=== PATIENT | female | born 1970 | race African-American/Black ===

== ENCOUNTER 2020-03-03 14:09 | Emergency (ER) | payer OTHER ==
[~2020-03-03] VITALS: Ht 165.1 cm; Wt 100.0 kg
[2020-03-03 14:32] VITALS: BP 160/91
[2020-03-03] MEDS ORDERED: ORPHENADRINE CITRATE 60 MG/2 ML VIAL. IM ONE (16:15)
[2020-03-03] MEDS ORDERED: KETOROLAC 60 MG/2 ML VIAL. IM ONE (16:15)
[2020-03-03] MEDS ORDERED: NAPR-514 PO (16:57)
[2020-03-03] MEDS ORDERED: CYCL10TA2 PO (16:57)
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
== END 2020-03-03 17:50 | disposition home or self-care (01) ==
LOC: ER 14:09
DX: S16.1XXA Strain of muscle, fascia and tendon at neck level, initial encounter (principal); M54.5 Low back pain; M54.6 Pain in thoracic spine; J45.909 Unspecified asthma, uncomplicated; Z91.013 Allergy to seafood; V49.49XA Driver injured in collision with other motor vehicles in traffic accident, initial encounter; Y93.89 Activity, other specified; Y92.488 Other paved roadways as the place of occurrence of the external cause; Y99.8 Other external cause status
CPT/HCPCS: 96372; 99284; J1885; J2360

== ENCOUNTER → 2020-06-20 | Outpatient (CLI) | payer OTHER ==
[~2020-06-20] MED LIST: CYCL10TA2 PO; NAPR-514 PO
--- NOTE | 2020-06-20 13:37 | RAD ---
EXAM: Pelvic sonogram. HISTORY: Pain. Prior endometrial ablation. TECHNIQUE: Transabdominal and transvaginal sonographic imaging of the pelvis was performed. COMPARISON: None. FINDINGS: The exam is limited due to body habitus. The uterus measures 11.8 x 7.1 x 6.6 cm. The endometrial stripe measures 3.8 cm in thickness. The ovaries are normal in size and demonstrate normal blood flow. IMPRESSION: 1. Severely thickened endometrial stripe measuring 3.8 cm. The patient reports no menstrual cycle status post reported endometrial ablation. Tissue sampling may be indicated for definitive diagnosis. 2. Unremarkable ovaries. Electronically signed by: Ila Castaneda MD (06/20/2020 1:34 PM) [id number]
== END ==
LOC: US 10:22
PROVIDERS: ATTEND Nurse Practitioner Family
DX: R10.32 Left lower quadrant pain (principal)
CPT/HCPCS: 76830; 76856

== ENCOUNTER 2020-12-20 21:28 | Emergency (ER) | payer OTHER ==
[~2020-12-20] VITALS: Ht 165.1 cm; Wt 100.0 kg
[2020-12-21 00:20] VITALS: BP 105/62
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
--- NOTE | 2020-12-21 01:04 | RAD ---
Three-view right knee dated 12/20/2020. No comparison available. Clinical data indication: Pain after injury. FINDINGS: 3 views the right knee show normal bony alignment. No displaced fracture. Mild tricompartmental hyper trophic changes. No apparent joint effusion or loose body. IMPRESSION: 1. No acute radiographic abnormality. 2. Mild tricompartmental DJD. Electronically signed by: Casa Tobin MD (12/21/2020 1:01 AM) ARACELI
--- NOTE | 2020-12-21 01:05 | RAD ---
3 views lumbar spine dated 12/20/2020. No comparison available. CLINICAL INDICATION: Low back pain. FINDINGS: AP, lateral and coned-down views of lumbosacral junction obtained. 5 nonrib-bearing vertebral levels. Vertebral body heights are maintained. Mild endplate hypertrophic changes with moderate arthrosis lo wer lumbar apophyseal joints. IMPRESSION: 1. No acute radiographic abnormality. 2. Moderate lower lumbar spondylosis. Electronically signed by: Casa Tobin MD (12/21/2020 1:02 AM) ARACELI
--- NOTE | 2020-12-21 01:06 | RAD ---
Single view chest dated 12/20/2020. No comparison available. CLINICAL INDICATION: Chest pain. FINDINGS: Single upright portable exam performed. Heart size is upper limits of normal. Mild elevation of right hemidiaphragm. Lungs are clear. No consolidation or pleural effusion. No pneumothorax. IMPRESSION: No acute radiographic abnormality. Electronically signed by: Casa Tobin MD (12/21/2020 1:03 AM) ARACELI
== END 2020-12-21 00:56 | disposition home or self-care (01) ==
LOC: ER 21:28
DX: S80.01XA Contusion of right knee, initial encounter (principal); M54.5 Low back pain; R07.89 Other chest pain; J45.909 Unspecified asthma, uncomplicated; Z98.890 Other specified postprocedural states; Z91.013 Allergy to seafood; V49.9XXA Car occupant (driver) (passenger) injured in unspecified traffic accident, initial encounter; Y93.89 Activity, other specified; Y92.89 Other specified places as the place of occurrence of the external cause; Y99.8 Other external cause status
CPT/HCPCS: 71045; 72100; 73562; 81025; 99285